=== PATIENT | male | born 1990 | race Caucasian/White ===

== ENCOUNTER 2017-12-01 11:41 | Emergency (ER) | payer OTHER ==
[~2017-12-01] VITALS: Ht 177.8 cm; Wt 64.9 kg
[~2017-12-01 11:41] MED LIST: AMOX1XR PO; CODACE30 PO; DULO30 PO; NAPR500 PO; NEOCOLOTSU OT; ONDA4ODT MM; OXYACE5T PO; SULTRIDS PO; TRAM50 PO
[2017-12-01] MEDS ORDERED: ARIP10 PO (11:53)
== END 2017-12-01 12:54 | disposition home or self-care (01) ==
LOC: ER 11:41
DX: J20.8 Acute bronchitis due to other specified organisms (principal); K05.10 Chronic gingivitis, plaque induced; F17.200 Nicotine dependence, unspecified, uncomplicated; Z79.899 Other long term (current) drug therapy
CPT/HCPCS: 99282

== ENCOUNTER 2018-09-07 16:37 | Emergency (ER) | payer SELFPAY ==
[~2018-09-07] VITALS: Ht 160 cm; Wt 68.0 kg
[~2018-09-07 16:37] MED LIST changes: +ARIP10 PO; +Augmentin 875-1 EACH PO; +Flonase 0.05% N16 GM
[2018-09-07] MEDS ORDERED: CYCL10 PO (17:28)
[2018-09-07] MEDS ORDERED: Naprosyn500 MG PO (17:28)
== END 2018-09-07 17:33 | disposition home or self-care (01) ==
LOC: ER 16:37
DX: S86.012A Strain of left Achilles tendon, initial encounter (principal); F41.9 Anxiety disorder, unspecified; F17.210 Nicotine dependence, cigarettes, uncomplicated; Z79.899 Other long term (current) drug therapy; X58.XXXA Exposure to other specified factors, initial encounter; Y93.01 Activity, walking, marching and hiking; Y92.89 Other specified places as the place of occurrence of the external cause; Y99.0 Civilian activity done for income or pay
CPT/HCPCS: 73650; 99283-25

== ENCOUNTER 2020-08-10 22:06 | Emergency (ER) | payer OTHER ==
[~2020-08-10] VITALS: Ht 177.8 cm; Wt 63.5 kg
[~2020-08-10 22:06] MED LIST changes: +CYCL10 PO; +Naprosyn500 MG PO
[2020-08-10 22:24] LABS: BASOPHILS ABSOLUTE AUTO 0.04 K/mm3 (0.00-0.23); BASOPHILS PERCENT AUTO 0 % (0-2); EOSINOPHILS ABSOLUTE AUTO 0.05 K/mm3 (0.00-0.68); EOSINOPHILS PERCENT AUTO 0 % (0-6); Hematocrit 45.3 % (37.0-53.0); Hemoglobin 15.2 g/dL (13.5-17.5); IMMATURE GRAN ABSOLUTE AUTO 0.03 K/mm3 (0.00-0.10); IMMATURE GRAN PERCENT AUTO 0 % (0-1); LYMPHOCYTES ABSOLUTE AUTO 2.32 K/mm3 (0.84-5.20); LYMPHOCYTES PERCENT AUTO 20 % (21-46); MONOCYTES ABSOLUTE AUTO 1.21 K/mm3 (0.16-1.47); MONOCYTES PERCENT AUTO 10 % (4-13); Mean Corpuscular HGB 30.3 pg (26.0-34.0); Mean Corpuscular HGB Conc 33.6 g/dL (31.5-36.5); Mean Corpuscular Volume 90 fL (80-100); Mean Platelet Volume 9.6 fL (9.1-12.4); NEUTROPHILS ABSOLUTE AUTO 7.98 K/mm3 (1.96-9.15); NEUTROPHILS PERCENT AUTO 69 % (41-73); Platelet Count 235 K/mm3 (150-400); RDW Coefficient Variation 12.8 % (11.7-14.2); RDW Standard Deviation 42.4 fL (35.1-46.3); Red Blood Cell Count 5.01 M/mm3 (4.30-5.90); White Blood Cell Count 11.63 K/mm3 (4.00-11.30)
[2020-08-10 22:41] LABS: Alanine Aminotransfer (ALT/SGP 18 U/L (12-78); Albumin, Blood 4.5 g/dL (3.4-5.0); Albumin/Globulin Ratio 1.3 (0.8-1.8); Alk Phos 57 U/L (50-136); Anion Gap 4 mmol/L (6-16); Aspartate Aminotrans (AST/SGOT 12 U/L (12-37); Bilirubin, Total 0.6 mg/dL (0.1-1.0); Blood Urea Nitrogen 12 mg/dL (8-24); CO2, Blood 29 mmol/L (21-32); Calcium, Blood 9.4 mg/dL (8.5-10.1); Chloride, Blood 107 mmol/L (98-108); Creatinine, Blood 0.92 mg/dL (0.60-1.20); Globulin, Blood 3.5 g/dL (2.2-4.0); Glomerular Filtration Rate >60 (60-); Glucose, Blood 97 mg/dL (70-99); Potassium, Blood 3.5 mmol/L (3.5-5.5); Sodium, Blood 140 mmol/L (136-145)
[2020-08-11 00:33] LABS: Influenza A, PCR Negative (NEGATIVE); Influenza B, PCR Negative (NEGATIVE); Resp Syncytial Virus, PCR Negative (NEGATIVE); SARS-Cov-2 (COVID-19) PCR, MMC Negative (NEGATIVE)
[2020-08-12] MEDS ORDERED: Tessalon Perle100 MG PO (11:40)
[2020-08-12] MEDS ORDERED: DEXT30SU PO (11:40)
[2020-08-12] MEDS ORDERED: KETO10 PO (11:40)
== END 2020-08-11 00:29 | disposition home or self-care (01) ==
LOC: ER 22:06
PROVIDERS: Physician Assistant
DX: J06.9 Acute upper respiratory infection, unspecified (principal); F17.210 Nicotine dependence, cigarettes, uncomplicated; Z20.822 Contact with and (suspected) exposure to COVID-19
CPT/HCPCS: 0241U; 36415; 71045; 80053; 85025; 99283-25; A9270; J7030

== ENCOUNTER 2020-08-12 09:40 | Emergency (ER) | payer OTHER ==
[~2020-08-12] VITALS: Ht 177.8 cm; Wt 63.5 kg
[2020-08-12] MEDS ORDERED: DEXT30SU PO (11:40)
[2020-08-12] MEDS ORDERED: Tessalon Perle100 MG PO (11:40)
[2020-08-12] MEDS ORDERED: KETO10 PO (11:40)
== END 2020-08-12 11:56 | disposition home or self-care (01) ==
LOC: ER 09:40
DX: J06.9 Acute upper respiratory infection, unspecified (principal); F17.200 Nicotine dependence, unspecified, uncomplicated
CPT/HCPCS: 99283; A9270